=== PATIENT | female | born 1970 | race Caucasian/White ===

== ENCOUNTER 2021-02-18 11:23 | Outpatient (CLI) | payer OTHER, SELFPAY ==
[2021-02-24 10:05] LABS: Testosterone Free 88.4 pg/mL (0.1-6.4); Testosterone Total 483 ng/dL (2-45)
== END 2021-02-18 11:24 | disposition home or self-care (01) ==
DX: F64.9 Gender identity disorder, unspecified (principal)
CPT/HCPCS: 36415; 84402; 84403

== ENCOUNTER 2021-02-18 11:55 | Emergency (ER) | payer OTHER, SELFPAY ==
[2021-02-18 12:20] VITALS: BP 120/83; PULSE 96; RESP 16; TEMP 36.1; O2SAT 100
[2021-02-18 13:21] LABS: Add Urine Microscopic? YES; Appearance Urine Cloudy (Clear); Bilirubin Urine Negative (Negative); Blood Urine 2+ (Negative); Color Urine Light Yellow (Yellow); Glucose Urine UA Negative (Negative); Ketones Urine Negative (Negative); Leukocyte Esterase Ur Trace LEU/UL (Negative); Nitrate Urine Positive (Negative); Protein Urine Negative (Negative); Urobilinogen Urine 0.2 mg/dL (0.2-1.0)
[2021-02-18 13:27] LABS: Bacteria Urine 2+ /hpf; Squamous Epithelial Cell Urine Few /hpf (Few)
--- NOTE | 2021-02-18 13:44 | ED.FEMALEGU ---
HPI - Female Genitourinary General Source: patient Mode of arrival: ambulatory Limitations: no limitations History of Present Illness HPI Narrative: Patient comes in with dysuria, frequency and urgency which started noon yesterday. She denies fever and chills. AZO at home has decreased the discomfort minimally. Dysuria has been mild, ongoing since noon yesterday. No other associated signs or symptoms. MD elicited complaint: dysuria and UTI Onset (ago): hour(s) Location of symptoms: external genitalia Severity: mild Severity scale (1-10): 3 Consistency: constant Urinary symptoms: Dysuria, Urgency and Frequency Exacerbating factors: urination Associated symptoms: denies other symptoms Treatment prior to arrival: other (Azo has not helped much) Sexual activity: Yes Related Data Home Medications Medication Instructions Recorded Confirmed albuterol sulfate 2 puff INHALATION QID PRN 02/18/21 02/18/21 dulaglutide 1.5 mg SUBCUT WEEKLY 02/18/21 02/18/21 glipizide 10 mg PO BID 02/18/21 02/18/21 lisinopril-hydrochlorothiazide 1 tablet PO DAILY 02/18/21 02/18/21 meloxicam 15 mg PO DAILY 02/18/21 02/18/21 metformin 1,000 mg PO BID 02/18/21 02/18/21 oxybutynin chloride 5 mg PO DAILY 02/18/21 02/18/21 pregabalin 75 mg PO BID 02/18/21 02/18/21 rosuvastatin 10 mg PO DAILY 02/18/21 02/18/21 testosterone 25 mg IM WEEKLY 02/18/21 02/18/21 Allergies Allergy/AdvReac Type Severity Reaction Status Date / Time No Known Allergies Allergy Verified 02/18/21 12:39 Review of Systems Constitutional: Constitutional: Reports no additional constitutional complaints Eyes: Eyes: Reports no additional eye complaints ENT: Reports system reviewed and no additional complaints, except as documented Cardiovascular: Cardiovascular: Reports no additional cardiovascular complaints Respiratory: Respiratory: Reports no additional respiratory complaints Gastrointestinal: Gastrointestinal: Reports no additional gastrointestinal complaints Genitourinary: Genitourinary: Reports no additional female genitourinary complaints Musculoskeletal: Musculoskeletal: Reports no additional musculoskeletal complaints Integumentary/Breasts: Skin/Breast: Reports system reviewed and no additional complaints, except as docu Neurologic: Reports system reviewed and no additional complaints, except as documented Psychiatric: Psychiatric: Reports no additional psychiatric complaints Endocrine: Endocrine: Reports no additional endocrine complaints Hematologic/Lymphatic: Hematologic/Lymphatic: Reports no additional hematologic/lymphatic complaints Allergic/Immunologic: Allergic/Immunologic: Reports no additional allergic/immunologic complaints [facility] Past Medical History Medical History (Updated 02/19/21 @ 05:08 by Ernesto Vicente MD) Diabetes Hypertension Trans-sexualism Surgical History Surgical History (Updated 02/19/21 @ 05:01 by Ernesto Vicente MD) H/O dilation and curettage Family History Family History (Updated 02/19/21 @ 05:02 by Ernesto Vicente MD) Father AIDS Mother Diabetes mellitus Heart disease Social History Social History (Updated 02/19/21 @ 05:03 by Ernesto Vicente MD) Smoking status: Never smoker Alcohol intake: never Substance use: never Additional living arrangements comments: lives with girlfriend 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
[2021-02-18] MEDS: cefTRIAXone 1 GM VIAL IM (14:00)
[2021-02-18] MEDS: LIDOCAINE HCL 1% LOCAL INJ 20 ML VIAL (14:03)
[2021-02-18 14:35] VITALS: BP 136/87; PULSE 95; RESP 14; TEMP 36.6; O2SAT 100
== END 2021-02-18 14:36 | disposition home or self-care (01) ==
PROVIDERS: Emergency Provider Emergency Medicine
DX: N39.0 Urinary tract infection, site not specified (principal)
CPT/HCPCS: 81001; 87077; 87086; 87088; 87186; 96372; 99283; J0696